=== PATIENT | male | born 1980 | race African-American/Black ===

== ENCOUNTER 2019-06-26 19:25 | Emergency (ER) | payer OTHER ==
[~2019-06-26 19:25] MED LIST: COR3 PO; CYAN-50 PO; DOCU250C14 MT; FERR325T6 MT; FURO-151 MT; LISI10TA5 PO
[2019-06-26 22:15] VITALS: BP 115/75
[2019-06-26 23:18] LABS: BASOPHILS % 0.1 % (0.0-2.0); EOSINOPHILS % 7.5 % (0.0-5.0); HEMATOCRIT. 23.3 % (42.0-52.0); HEMOGLOBIN. 7.5 g/dL (14.0-18.0); LYMPHOCYTES % 23.1 % (20.0-50.0); MEAN CORPUSCULAR HEMOGLOBIN 37.3 pg (28.0-32.0); MEAN CORPUSCULAR VOLUME 115.6 fL (80.0-94.0); MEAN PLATELET VOLUME 7.2 fl (7.4-10.4); MONOCYTES % 11.6 % (2.0-8.0); NEUTROPHILS % 57.7 % (40.0-76.0); PLATELET 305 x1000/uL (130-400); RED BLOOD CELL COUNT 2.01 mill/uL (4.7-6.1); RED CELL DISTRIBUTION WIDTH 39.3 % (11.6-14.6)
[2019-06-26 23:25] LABS: CHLORIDE 116 mEq/L (98-107)
[2019-06-26 23:26] LABS: INR 1.2; PARTIAL THROMBOPLASTIN TIME 32.3 sec (23.4-31.0); PROTHROMBIN TIME 12.5 sec (9.6-11.0)
== END 2019-06-27 00:33 | disposition left against medical advice (07) ==
LOC: ER 19:25
DX: D53.9 Nutritional anemia, unspecified (principal); R60.0 Localized edema; M79.605 Pain in left leg; M79.604 Pain in right leg; R26.2 Difficulty in walking, not elsewhere classified; Z59.0 Homelessness
CPT/HCPCS: 36415; 71045; 80053; 83880; 84484; 85025; 93970; 99284

== ENCOUNTER 2019-06-27 06:22 | Emergency (ER) | payer MEDICAID, OTHER | END 2019-06-27 08:26 | disposition left against medical advice (07) | LOC: ER 06:22 | DX: Z53.21 Procedure and treatment not carried out due to patient leaving prior to being seen by health care provider (principal) ==

== ENCOUNTER 2023-12-25 07:26 | Emergency (ER) | payer OTHER ==
[~2023-12-25] VITALS: Ht 190.5 cm; Wt 127.0 kg
[~2023-12-25 07:26] MED LIST changes: +DOXY100C5 MT; +LISI10TA26 PO; -LISI10TA5 PO
[2023-12-25 07:39] VITALS: O2SAT 99
[2023-12-25] MEDS ORDERED: DOXY150T9 PO (08:09)
[2023-12-25] MEDS: CEFTRIAXONE SODIUM 1G VIAL IM ONE (08:25)
[2023-12-25] MEDS: DOXYCYCLINE HYCLATE 100MG CAPSULE PO ONE (08:25)
[2023-12-25 08:34] VITALS: BP 138/87; PULSE 88; RESP 16; TEMP 98.3
[2023-12-27 09:10] LABS: CHLAMYDIA TRACHOMATIS NAA Negative (Negative); NEISSERIA GONORRHOEAE NAA Negative (Negative)
== END 2023-12-25 08:34 | disposition home or self-care (01) ==
LOC: ER 07:26
DX: A64 Unspecified sexually transmitted disease (principal); I10 Essential (primary) hypertension; Z79.899 Other long term (current) drug therapy
CPT/HCPCS: 99283; 87491; 87591; 96372; J0696